=== PATIENT | male | born 1990 | race Caucasian/White ===

== ENCOUNTER → 2018-07-13 | Day surgery (SDC) | payer OTHER ==
[~2018-07-13] MED LIST: ACETAMINOPHEN 1000 MG/100 ML IV ONE; DEXAMETHASONE SOD PHOS INJ 4 MG/ML VIAL ONE; EPINEPHRINE HCL INJ 1 MG/ML AMP ONE; FENTANYL CITRATE/PF 100MCG/2 ML INJ ONE; GLYCOPYRROLATE INJ 1MG/ 5 ML SYR ONE; IBUPROFEN; LIDOCAINE 1% W/EPINEPHRINE 20 ML VIAL ONE; LIDOCAINE HCL (LTA) 4 ML SOLN ONE; LIDOCAINE HCL 2% LOCAL INJ 5 ML SDV VIAL INJ ONE; MIDAZOLAM HCL 2 MG/2 ML VIAL ONE; NEOSTIGMINE 5 MG/5ML SYR ONE; PROPOFOL IV EMULSION 10 MG/ML 20 ML VIAL ONE; ROCURONIUM BROMIDE 10 MG/ML 5ML VIAL ONE; SEVOFLURANE INHAL SOLN 250 ML PEN BTL ONE; TYLENOL
[2018-07-13 10:55] VITALS: BP 136/84
--- NOTE | 2018-07-13 10:59 | Operative Report ---
DATE OF PROCEDURE: July 13, 2018 PREOPERATIVE DIAGNOSES 1. Nasal obstruction. 2. Nasal deformity. POSTOPERATIVE DIAGNOSES 1. Nasal obstruction. 2. Nasal deformity. OPERATIVE PROCEDURE: Septoplasty. ANESTHESIA: Anesthesiology group. This 28-year-old male has a history of nasal obstruction. The patient's nasal obstruction is bilaterally. On examination, he was noted to have a deviated nasal septum to the right side anteriorly about 40% with a subluxed septum to the left. His condition has been treated with topical nasal steroid and antibiotics with no improvement. A CT scan of the paranasal sinuses confirmed the deviated nasal septum. It was decided that the septoplasty and other necessary procedures would be beneficial for him. The patient does have some sphenoid sinus infection, and it was decided that opening up the septum would likely improve the drainage and the septum, and the sphenoid sinus might not need to be operated on at this point. DETAILS OF PROCEDURE: Patient was taken to the operating room and put under general anesthesia and endotracheally intubated. Nose was injected with 1% Xylocaine with 1:100,000 epinephrine for hemostasis. Epinephrine soaked pledget was inserted into the nose and subsequently removed. The left paranasal sinuses were approach. The hemitransfixion incision was done on the left side. Mucoperichondrial flap was elevated to the left. The bony cartilaginous junction was encountered, and this was . The perpendicular plate of the ethmoid was transected. This was removed along with the vomer. The septal spur and cartilaginous portion was removed using a [employer] elevator. The quadrangular cartilage was freed from the posterior and inferior quadrangular was able to swing back in the midline. This subluxed septum anteriorly was trimmed off so that the septum would fall back in between the columella. The septum was straight at the end of the procedure. The hemitransfixion incision was closed using 4-0 chromic suture in an interrupted fashion. Septal whipstitch was done using 4-0 plain gut suture to reapproximate the mucoperichondrial flap and prevent septal hematoma formation. The patient tolerated the above procedure well with less than 10 mL. He was given 20 mg of Decadron intraoperatively. Patient was able to be transferred to the recovery room in stable condition. Job#: [id number]
== END | disposition home or self-care (01) ==
LOC: OR 07:34
PROVIDERS: ATTEND Otolaryngology Otolaryngology/Facial Plastic Surgery
DX: J34.2 Deviated nasal septum (principal); J34.89 Other specified disorders of nose and nasal sinuses; J32.3 Chronic sphenoidal sinusitis; M95.0 Acquired deformity of nose; F17.210 Nicotine dependence, cigarettes, uncomplicated
CPT/HCPCS: 30520; 88300; J0131; J0171; J1100; J2001; J2250; J2704; J3490